=== PATIENT | female | born 1990 | race Caucasian/White ===

== ENCOUNTER 2017-07-22 20:03 | Inpatient (IN) ==
[2017-07-22] MEDS ORDERED: fentaNYL Inj 100 MCG/2 ML VIAL IVP ONE (20:30)
[2017-07-22] MEDS ORDERED: fentaNYL Inj 100 MCG/2 ML VIAL ONE ×2 (20:35→21:21)
[2017-07-22 20:48] LABS: Hematocrit [HCT] 39.2 % (37.0-47.0); Hemoglobin [HGB] 12.6 g/dL (12.0-16.0); MEAN CORPUSCULAR HGB CONC 32.1 g/dL (33-37); MEAN CORPUSCULAR VOLUME 93.3 FL (81-99); MEAN PLATELET VOLUME 11.5 FL (7.4-12.2); RED BLOOD COUNT 4.2 10^6/uL (4.20-5.40)
[2017-07-22] MEDS ORDERED: ePHEDrine Inj 50 MG/ML AMP ONE (20:49)
[2017-07-22] MEDS ORDERED: Sodium Chloride 0.9% vial 20 ML ONE (20:49)
[2017-07-22] MEDS ORDERED: PHENYLEPHRINE 10,000 MCG/1 ML VIAL ONE (20:50)
[2017-07-22] MEDS ORDERED: ceFAZolin Inj 2gm (Premix) 2 GM/50 ML BAG IV ONE (20:55)
[2017-07-22 20:59] LABS: HEMOGLOBIN A1C 5.62 % (4.2-6.0)
[2017-07-22] MEDS ORDERED: CITRIC ACID/SODIUM CITRATE 30 ML CUP PO ONE ×2 (21:01→21:05)
[2017-07-22] MEDS ORDERED: FAMOTIDINE 20 MG/2 ML VIAL IVP ONE ×2 (21:01→21:05)
[2017-07-22] MEDS ORDERED: LIDOCAINE W/ SODIUM BICARB 0.5 ML SYR SUBD ONE (21:01)
[2017-07-22] MEDS ORDERED: Metoclopramide Inj 10 MG/2 ML VIAL IVP ONE (21:01)
[2017-07-22] MEDS ORDERED: LIDOCAINE W/ SODIUM BICARB 0.5 ML SYR SUBD PRN ×2 (21:05→22:29)
[2017-07-22] MEDS ORDERED: Lactated Ringers 1,000 ML PRIMARY IV ONE (21:05)
[2017-07-22] MEDS ORDERED: CefOXitin Inj 2 GM in Sodium Chloride 0.9% 100 ML IV ONE (21:05)
[2017-07-22] MEDS ORDERED: Metoclopramide Inj 10 MG/2 ML VIAL IV ONE (21:05)
[2017-07-22] MEDS ORDERED: KETOROLAC 15 MG/1 ML VIAL IVP PRN (21:07)
[2017-07-22] MEDS ORDERED: PROPOFOL 10 MG/1 ML (200 MG/20 ML) VIAL IV ONE (21:08)
[2017-07-22] MEDS ORDERED: Oxytocin 20 Units + LR 20 UNIT/1,000 ML BAG IV SCH ×2 (21:15→23:30)
[2017-07-22] MEDS ORDERED: Lactated Ringers 1,000 ML PRIMARY IV SCH ×2 (21:15)
[2017-07-22] MEDS ORDERED: MIDAZOLAM 5 MG/1 ML ONE (21:20)
[2017-07-22] MEDS ORDERED: HYDROmorphone 2 MG/1 ML ONE ×2 (21:27→21:33)
[2017-07-22] MEDS ORDERED: AZITHROMYCIN 500 MG VIAL IV ONE (21:33)
[2017-07-22] MEDS ORDERED: Lactated Ringers 3,000 ML PRIMARY IV ONE (22:10)
--- NOTE | 2017-07-22 22:26 | CRNA.PROGR ---
Anesthesia Time - - Start date: 07/22/17 End date: 07/22/17 - Procedure/Recovery Time Anesthesia : Time In: 20:54 Anesthesia : Time Out: 22:03 Anesthesia : Total Time: 69 - Total Anesthesia Time Total Anesthesia Time (minutes): 69 - Other Physical Status: P3 (Gestational dm, previous section, now complete. no warning) Anesthesia Type: General Anesthesia : ET
--- NOTE | 2017-07-22 22:26 | CRNA.PROGR ---
Post Anesthesia Phase II - Post Anesthesia Phase II Patient Stable and Discharged To: OB Care Assumed By Surgeon: Angelo Santos MD Total Matt Score at Discharge: 9 Post Anesthesia Discharge Criteria Met: Yes
--- NOTE | 2017-07-22 22:26 | CRNA.PROGR ---
Anesthesia Recovery Phase I - Post Anesthesia Evaluation Patient's Condition on Arrival in Phase I: Stable Patient's Condition on Arrival in Phase II: Stable Pain Level: 2
[2017-07-22] MEDS ORDERED: Ondansetron ODT Tab 8 MG TAB PO PRN (22:29)
[2017-07-22] MEDS ORDERED: ONDANSETRON 4 MG/2 ML VIAL IVP PRN ×2 (22:29→23:30)
[2017-07-22] MEDS ORDERED: HYDROmorphone 2 MG/1 ML IVP PRN (22:29)
[2017-07-22] MEDS ORDERED: ATROPINE SULFATE 0.4 MG/1 ML VIAL IVP PRN (22:29)
--- NOTE | 2017-07-22 22:29 | CRNA.PROCE ---
Central Neuraxis Block Placemt - - Safety Measures: Time Out Taken, Site Verified - - Type of Block: Subarachnoid Reason for Block: Surgical Moniters Used During Block: EKG, SPO2, NIBP Skin Prep Used: ChloroPrep Draped: Yes Skin Infiltration - Enter Amount Used in Comment Field: 1% Xylocaine (mL): Yes Spinal Needle Used: 22 Mireya 80 mm - - Additional Details: Unable to easily get into spinal space. Mult passes bone. Urgent setting- abandoned technique.
--- NOTE | 2017-07-22 22:42 | OB.OP.NOTE ---
Operative Report Surgeon: Rosangela Santos MD Business Office Technician: Giuseppe De La Paz MD Anesthesia Type: General Anesthesia Provider: Renee Alaniz CRNA Surgery Date: 07/22/17 Preoperative Diagnosis: Previous section. Active labor. Desired parity Postoperative Diagnosis: Same, delivered. Procedure: Repeat section with bilateral tubal ligation using Filshie clips Complications: none Estimated Blood Loss (mL): 550 Urine Output (mL): 50 Fluids: 3000 cc LR; 500 cc of LR with 20 mU of pitocin Indications: We do not offer vaginal after section trials at our facility and the patient did not desire this. She is requesting a repeat section. Findings: clear amniotic fluid; male infant in cephalic presentation. Description of Procedure: The patient was taken to the operating room where spinal anesthesia was attempted. This was aborted after about 10-15 minutes in favor of general anesthesia. She was then prepared and draped in the normal sterile fashion in the dorsal supine position with a leftward tilt. A mosher catheter was placed. She underwent induction of general anesthesia without complication. A Pfannenstiel skin incision was then made with the scalpel and carried through to the underlying layer of fascia with Bovie. The fascia was incised in the midline and the incision extended laterally with the Bovie. The superior aspect of the fascial incision was then grasped with Santosh clamps, elevated and the underlying rectus muscles dissected off bluntly. Attention was then turned to the inferior aspect of this incision which, in a similar fashion, was grasped with Santosh clamps and the rectus muscles dissected off both bluntly and with the Bovie. The rectus muscles were then in the midline, and the peritoneum identified, tented up, and entered in blunt fashion. The peritoneal incision was then extended superiorly and inferiorly with good visualization of the bladder. Several omental adhesions to the bladder and lower uterine segment were reduced with the bovie. The Hunter retractor was then inserted and the vesicouterine peritoneum was identified. The lower uterine segment incised in the transverse fashion with the scalpel. The uterine incision was then extended laterally in a blunt fashion. The 's head was delivered atraumatically. The nose and mouth were suctioned with the bulb suction and the cord clamped and cut. The infant was handed off to the awaiting nurse. Cord gases and cord blood were sent for analysis. The placenta was then removed manually; the uterus exteriorized, and cleared of all clots and debris. The uterine incision was repaired with 0 Vicryl in a running, locked fashion. The peritoneal cavity was then copiously irrigated with warm saline. Filshie clips were placed on the isthmic portion of both fallopian tubes. The uterus was returned to the abdomen. The paracolic gutters were copiously irrigated with warm saline and a second look at the uterine incision continued to reveal excellent hemostasis. The peritoneum was closed with 3-0 Vicryl. The fascia was reapproximated with 0 PDS in a running fashion. The subcutaneous space was irrigated with copiously with warm saline. The skin was reapproximated with noel and a Silverlon dressing applied. Fundal massage was completed with no clots in vaginal vault. The patient tolerated the procedure well. Sponge, lap, and needle counts were correct x2. Ancef was given preoperatively less than one hour prior to incision time. The patient was taken to the recovery room in stable condition.
[2017-07-22] MEDS ORDERED: FAMOTIDINE 20 MG/2 ML VIAL IVP PRN (23:30)
[2017-07-22] MEDS ORDERED: Naloxone Inj 0.01 MG, Sodium Chloride 0.9% vial 1 ML IVP PRN ×2 (23:30)
[2017-07-22] MEDS ORDERED: CALCIUM CARBONATE 500 MG (TUMS) CHEWABLE TABLET PO PRN (23:30)
[2017-07-22] MEDS ORDERED: diphenhydrAMINE 50 MG/1 ML VIAL IV PRN (23:30)
[2017-07-22] MEDS ORDERED: HYDROmorphone 2 MG/1 ML IV PRN (23:30)
[2017-07-22] MEDS ORDERED: diphenhydrAMINE 25 MG CAPSULE PO PRN (23:30)
[2017-07-22] MEDS ORDERED: DIPH,PERTUSS,TET(ADACEL) VAC/PF 0.5 ML (Tdap) IM ONE (23:30)
[2017-07-22] MEDS ORDERED: LANOLIN HPA 40 GM TUBE TOPICAL PRN (23:30)
[2017-07-22] MEDS ORDERED: Nalbuphine Inj 20 MG/ML Ampule IVP PRN (23:30)
[2017-07-23 05:10] LABS: Hematocrit [HCT] 30.8 % (37.0-47.0); Hemoglobin [HGB] 9.9 g/dL (12.0-16.0); MEAN CORPUSCULAR HEMOGLOBIN 30.4 PG (27-31); MEAN CORPUSCULAR HGB CONC 32.1 g/dL (33-37); MEAN CORPUSCULAR VOLUME 94.5 FL (81-99); MEAN PLATELET VOLUME 11.9 FL (7.4-12.2); RED BLOOD COUNT 3.26 10^6/uL (4.20-5.40)
[2017-07-23] MEDS: KETOROLAC 15 MG/1 ML VIAL IVP SCH ×3 (05:15→17:32)
[2017-07-23] MEDS: Lactated Ringers 1,000 ML PRIMARY IV SCH ×2 (06:57→08:34)
[2017-07-23] MEDS: D5-LR 1,000 ML PRIMARY IV SCH ×2 (06:57→07:54)
[2017-07-23] MEDS: oxyCODONE-ACETAMINOPHEN 5-325 TAB PO PRN ×5 (07:04→19:37)
[2017-07-23] MEDS ORDERED: PRENATAL VITS W CA FE FA PO SCH (09:00)
--- NOTE | 2017-07-23 09:20 | CRNA.PROGR ---
Anesthesia Note - Progress Notes Anesthesia Progress Note: Lying in bed, holding . States pain is controlled. States has not been up and out of bed yet. Patterson still in. Denies headache. States back hurts " a little". States not from crispin but from attempted spinal. Encouraged to be up and around. Laboratory Results 07/22/17 07/22/17 07/22/17 Range/Units 20:37 20:37 20:37 WBC 19.01 H (4.8-10.8) 10^3/uL RBC 4.20 (4.20-5.40) 10^6/uL Hgb 12.6 (12.0-16.0) g/dL Hct 39.2 (37.0-47.0) % MCV 93.3 (81-99) FL MCH 30.0 (27-31) PG MCHC 32.1 L (33-37) g/dL RDW Std Deviation 51.8 H (39-50) fL RDW Coeff of Chaz 15.6 H (11.5-14.5) % Plt Count 301 (140-350) 10*3/uL MPV 11.5 (7.4-12.2) FL Mean Blood Glucose 101.146 mg/dL Hemoglobin A1c 5.62 (4.2-6.0) % Blood Type O POSITIVE Antibody Screen Negative 07/23/17 Range/Units 04:09 WBC 22.90 H (4.8-10.8) 10^3/uL RBC 3.26 L (4.20-5.40) 10^6/uL Hgb 9.9 L (12.0-16.0) g/dL Hct 30.8 L (37.0-47.0) % MCV 94.5 (81-99) FL MCH 30.4 (27-31) PG MCHC 32.1 L (33-37) g/dL RDW Std Deviation 50.8 H (39-50) fL RDW Coeff of Chaz 15.2 H (11.5-14.5) % Plt Count 238 (140-350) 10*3/uL MPV 11.9 (7.4-12.2) FL Mean Blood Glucose mg/dL Hemoglobin A1c (4.2-6.0) % Blood Type Antibody Screen Bedside Blood Glucose Finger Stick Blood Glucose 105 Bedside Blood Glucose - Intervention Bedside Blood Glucose Start: 07/23/17 07:03 Freq: Status: Active Protocol: Activity Type Activity Date Activity User E-Sign Co-Sign Detail Recorded Client Recorded Date Recorded By Document 07/23/17 07:04 [id number] 07/23/17 07:04 [id number] 07/23/17 07:04 Blood Glucose Assessment Bedside Glucometer Cleaned Per Policy Yes Prior to Patient Use Bedside Blood Glucose (80-110) 105 Action Taken WNL- No Action Taken Vital Signs - Last Taken Temperature 98.1 F 07/23/17 05:00 Pulse Rate 61 07/23/17 05:00 Respiratory Rate 16 07/23/17 05:00 Blood Pressure 112/68 07/23/17 05:00 Pulse Ox 94 07/23/17 05:50 No apparent anesthetic dificulty.{
--- NOTE | 2017-07-23 09:22 | OB.PROGRES ---
Subjective Post Op Day: 1 Pain Management: PO Patterson Catheter: Yes Flatus: Yes Diet: Regular Feeding Method: Formula Feeding Ambulating: No Concerns / Additional Information: Mild to moderate lochia. Having a little bit of right shoulder pain. Back is also sore from attempted spinal placement. Objective - General General Appearance: POSITIVE: No Acute Distress, Cooperative - Cardiovacular Cardiovascular Exam: POSITIVE: RRR, No Murmur Edema: +1 Pedal Edema Extremities: Negative Oseas's - Bilaterally - Respiratory Respiratory Exam: POSITIVE: Clear to Auscultation - Bilaterally, Breathing Non Labored - Abdomen Bowel Sounds: Hypoactive Abdominal Wound Assessment: Silverlone Dressing Assesstment / Plan (1) S/P repeat low transverse Current Visit: Yes Status: Acute (2) History of bilateral tubal ligation Current Visit: Yes Status: Acute Assessment / Plan: -routine cares. -bottle feeding currently. -rh positive. -rubella immune. -checking blood sugars ac and hs, no meds currently. A1c was 5.6 last noc. -offered nicotine patch, pt declined. -possible d/c home tomorrow.
[2017-07-23] MEDS: Senna/Docusate Tab 1 TAB TAB PO SCH ×2 (09:50→21:46)
[2017-07-23] MEDS: Prenatal Multivitamin Tab 1 TAB TAB PO SCH (09:50)
[2017-07-23] MEDS: FERROUS GLUCONATE 324 MG TABLET PO SCH ×2 (09:50→21:46)
[2017-07-24] MEDS: oxyCODONE-ACETAMINOPHEN 5-325 TAB PO PRN ×4 (00:41→17:11)
[2017-07-24] MEDS: KETOROLAC 15 MG/1 ML VIAL IVP SCH (02:38)
[2017-07-24] MEDS ORDERED: Lactated Ringers-OB Dept 2,000 ML ONE (02:48)
[2017-07-24] MEDS: IBUPROFEN 800 MG TABLET PO PRN ×2 (08:34→17:11)
[2017-07-24] MEDS: Prenatal Multivitamin Tab 1 TAB TAB PO SCH (08:34)
[2017-07-24] MEDS: Senna/Docusate Tab 1 TAB TAB PO SCH (08:34)
[2017-07-24] MEDS: FERROUS GLUCONATE 324 MG TABLET PO SCH (08:34)
[2017-07-24 08:41] VITALS: BP 123/75; RESP 14; TEMP 98.3; O2SAT 95
--- NOTE | 2017-07-24 13:44 | OB.PROGRES ---
Subjective Post Op Day: 1 Assesstment / Plan (1) S/P repeat low transverse Current Visit: Yes Status: Acute (2) History of bilateral tubal ligation Current Visit: Yes Status: Acute
--- NOTE | 2017-07-30 09:01 | DCSUMMARY ---
Hospitalization Summary Admit Date: 07/22/17 Discharge Date: 07/24/17 Primary Diagnosis:: Term IUP Secondary Diagnosis:: Active labor, previous section x 1, gestational diabetes, controlled on oral metformin. Primary Surgery and Date: Primary section on 07/22/17 Delivery Type: Hospital Course: Pt was admitted in active labor after starting to have contractions at 0900 on the morning of 07/22/17. [place] in [place]. She was completely dilated upon presentation to the labor and delivery unit. Because of her h/o section for cephalopelvis disproportion with her last baby that weighed 6#13oz and the pt's current gestational diabetes, the decision was made to take the pt for repeat section as opposed to AROM and attempting a vaginal delivery (she had had 1 vaginal delivery with her first term ) . The pt underwent a repeat section with no immediate complications. For details of her operation, please see operative report elsewhere in the chart. / Postop Complications: Pt had an uncomplicated post-operative course. On the day of discharge, she was ambulating around the room, tolerating a regular diet and her pain was well controlled on oral medications. Her baby was doing well. She was requesting discharge home. Complications: Baby did well despite mom's gestational diabetes diagnosis. On the day of discharge, he was feeding well, with normal voids and stools. Exam - Vitals Vital Signs: Vital Signs Temperature 98.3 F Temperature Source Oral Pulse Rate [Apical] 99 Pulse Rate [Pulse Oximeter 99 Right] Pulse Rate 68 Respiratory Rate 14 Blood Pressure [Right Arm] 123/75 Blood Pressure 129/74 Pulse Ox 95 Oxygen Flow Rate 2L Oxygen Delivery Method Room Air Height 4 ft 11 in Weight 155 lb - General General Appearance: No Acute Distress, Cooperative - Head Head Exam: Normal Inspection - Eye Eye Exam: POSITIVE: Normal Appearance - Neck Neck Exam: Normal Inspection - Respiratory Respiratory Exam: POSITIVE: Clear to Auscultation - Bilaterally, Breathing Non Labored - Cardiovascular Cardiovascular Exam: POSITIVE: RRR, No Murmur - GI/Abdominal GI/Abdominal Exam: POSITIVE: Normal Bowel Sounds, Non Tender, Non Distended, Soft - Extremities Extremities Exam: POSITIVE: Normal Inspection, Full ROM, Normal Capillary Refill - Back Back Exam: POSITIVE: Normal Inspection, Full ROM - Neurological Neurological Exam: POSITIVE: Alert, Oriented x 3 - Psychiatric Psychiatric Exam: POSITIVE: Normal Affect, Normal Mood - Integumentary Integumentary Exam: POSITIVE: Normal Color, Warm, Dry Patient Problems - Patient Problem List (1) S/P repeat low transverse Status: Acute Code(s): Z98.891 - History of uterine scar from previous surgery Category: Medical (2) History of bilateral tubal ligation Status: Acute Code(s): Z98.51 - Tubal ligation status Category: Surgical
== END 2017-07-24 17:48 | disposition home or self-care (01) | DRG 766 ==
LOC: OBOP 20:03 → OBIP 21:09
PROVIDERS: ADMIT Family Medicine; ATTEND Family Medicine